=== PATIENT | female | born 1965 | race Caucasian/White ===

== ENCOUNTER 2017-01-03 12:35 | Day surgery (SDC) | payer BC ==
[~2017-01-03] VITALS: Ht 167.6 cm; Wt 59.6 kg
[~2017-01-03 12:35] MED LIST: CHEWABLE-VITE1 EACH PO; KENALOG,ARISTOC15 G2 TP; LOPRESSOR50 MG PO; NORVASC10 MG PO
[2017-01-03 13:18] VITALS: BP 158/92
[2017-01-03 13:21] LABS: HEMATOCRIT 27.5 % (36.0-46.0); MCH 29.9 PG (29.0-34.0); MCHC 33.1 G/DL (30.0-36.0); MCV 90.5 FL (83-99); MEAN PLAT.VOLUME 9.1 uM^3 (9.5-12.4); PLATELET COUNT 214 K/uL (156-360); RBC DIS.WIDTH-CV 13.2 % (11.8-14.6); RBC DIS.WIDTH-SD 43.7 % (39-53); RED BLOOD COUNT 3.04 M/uL (3.80-5.20); WHITE BLOOD COUNT 7.6 K/uL (4.1-10.2)
[2017-01-03 14:04] LABS: ANION GAP 20 MEQ/L (2-14); CHLORIDE 105 MEQ/L (99-109); GFR ESTIMATE (CALCULATED) 3 mL/min/; GLUCOSE 99 mg/dL (70-99); POTASSIUM 5.6 MEQ/L (3.7-5.4); SAMPLE HEMOLYSIS CHECK 0; SAMPLE ICTERIC CHECK 0; SAMPLE LIPEMIA CHECK 0; SODIUM 138 MEQ/L (136-147)
[2017-01-03 14:05] LABS: UREA NITROGEN (BUN) 139 mg/dL (9-23)
[2017-01-03] MEDS ORDERED: NORCO 5/3251 TABLET PO (17:10)
[2017-01-03 17:42] VITALS: BP 132/62
[2017-01-03 18:55] VITALS: BP 120/66
[2017-01-03 19:46] VITALS: BP 130/66
[2017-01-03 21:39] VITALS: BP 134/78
[2017-01-03 23:36] VITALS: BP 122/72
[2017-01-04 03:45] VITALS: BP 148/73
[2017-01-04 05:53] LABS: HEMATOCRIT 23.2 % (36.0-46.0); MCH 29.7 PG (29.0-34.0); MCHC 31.9 G/DL (30.0-36.0); MCV 93.2 FL (83-99); MEAN PLAT.VOLUME 9.3 uM^3 (9.5-12.4); PLATELET COUNT 162 K/uL (156-360); RBC DIS.WIDTH-CV 13.4 % (11.8-14.6); RBC DIS.WIDTH-SD 45.6 % (39-53); RED BLOOD COUNT 2.49 M/uL (3.80-5.20); WHITE BLOOD COUNT 8.8 K/uL (4.1-10.2)
[2017-01-04 06:34] LABS: ANION GAP 15 MEQ/L (2-14); CHLORIDE 111 MEQ/L (99-109); GFR ESTIMATE (CALCULATED) 3 mL/min/; GLUCOSE 108 mg/dL (70-99); SAMPLE HEMOLYSIS CHECK 0; SAMPLE ICTERIC CHECK 0; SAMPLE LIPEMIA CHECK 0; SODIUM 141 MEQ/L (136-147)
[2017-01-04 06:37] LABS: POTASSIUM 6.1 MEQ/L (3.7-5.4); UREA NITROGEN (BUN) 128 mg/dL (9-23)
[2017-01-04 07:20] VITALS: BP 121/70
[2017-01-05 11:02] LABS: INTERNAL CONTROL VALID? YES
== END 2017-01-04 13:30 | disposition home or self-care (01) ==
LOC: SDC 12:35 → EDSTATUS 12:59 → SDC 13:00 → 2SOUTH 19:48 → 2EAST 20:44
PROVIDERS: Surgery
DX: K42.9 Umbilical hernia without obstruction or gangrene (principal); I12.0 Hypertensive chronic kidney disease with stage 5 chronic kidney disease or end stage renal disease; N18.5 Chronic kidney disease, stage 5; E87.5 Hyperkalemia; K91.0 Vomiting following gastrointestinal surgery; Y83.9 Surgical procedure, unspecified as the cause of abnormal reaction of the patient, or of later complication, without mention of misadventure at the time of the procedure; Z82.49 Family history of ischemic heart disease and other diseases of the circulatory system; Z80.1 Family history of malignant neoplasm of trachea, bronchus and lung
CPT/HCPCS: 80048; 84703; 85027; C1750; G0378; J0330; J0690; J1170; J2405; J3010; J7040; S0020